=== PATIENT | female | born 1975 | race Caucasian/White ===

== ENCOUNTER 2016-12-02 02:47 | Emergency (ER) | payer OTHER ==
[2016-12-02 02:55] VITALS: BP 107/75; PULSE 60; TEMP 97.9; BMI 22.4
[2016-12-02] MEDS ORDERED: ONDANSETRON 4 MG/2 ML VIAL ONE ×2 (03:03→03:09)
[2016-12-02] MEDS ORDERED: ONDANSETRON 4 MG/2 ML VIAL IVPB ONE (03:04)
[2016-12-02] MEDS ORDERED: SODIUM CHLORIDE 1,000 ML IV ONE (03:04)
--- NOTE | 2016-12-02 03:04 | PDOC ---
History of Present Illness - General Chief Complaint: Migraine Headache Stated Complaint: MIGRAINE Time Seen by Provider: 12/02/16 02:57 History Source: Patient Exam Limitations: No Limitations - History of Present Illness Initial Comments: 12/02/16 03:01 This is a 41-year-old female who comes in complaining of the severe left-sided headache. Patient has history significant for removal of a tumor on that side in the past. Patient said that she does not normally get migraine headaches. Patient said that over the last week she has had several headaches. Patient said that normally except for migraine works for her headaches. Patient saw her neurosurgeon and was given olanzapine which she took prior to coming in but says it is not working. Patient is also complaining of nausea. Patient denies any fevers or chills. Patient denies any neck stiffness. PAST MEDICAL HISTORY: as per HPI PAST SURGICAL HISTORY: no significant history FAMILY HISTORY: no pertinant history SOCIAL HISTORY: Pt lives with family and is employed. MEDICATIONS: reviewed ALLERGIES: As per nursing notes Review of Systems General: No fevers or chills, no weakness, no weight loss HEENT: No change in vision. No sore throat,. No ear pain CardioVascular: No chest pain or shortness of breath Respiratory:No cough, or wheezing. Gastrointestinal: no nausea, vomitting, diarrhea or constipation, No rectal bleeding Genitourinary: No dysuria, hematuria, or frequency Musculoskeletal: No joint or muscle pain or swelling Neurologic: + headache, no vertigo, dizziness or loss of consciousness Psychiatric: nor depression Skin: No rashes or easy bruising Endocrine: no increased thirst or abnormal weight change Allergic: no skin or latex allergy All other systems reviewed and normal Exam: General: Well-nourished well-developed individual, no acute distress HEENT: Throat: Normal, tonsils normal, no erythema or exudate Neck: Supple, no meningeal signs, no lymphadenopathy Eyes::Pupils equal reactive and round, extraocular motion intact Extremities: Warm, dry, no cyanosis, clubbing, or edema Skin: No rashes Neuro: Alert and oriented x3, nonfocal exam, grossly intact, normal gait Psych: Normal mood and affect CT head shows no acute pathology Assessment and plan: This is a 41-year-old female who comes in complaining of a migraine. Patient is has frequent migraines after surgery for a brain lesion. Patient was given Toradol, Zofran and morphine with improvement but not complete resolution of her symptoms. Patient had a head CT done that was negative for any acute pathology Patient discharged home will follow-up with her doctor Past History - Past Medical History Allergies/Adverse Reactions: Allergies Allergy/AdvReac Type Severity Reaction Status Date / Time No Known Allergies Allergy Verified 12/02/16 02:48 Home Medications: Ambulatory Orders Olanzapine 5 mg PO PRN 12/02/16 Other medical history: MIGRAINES - Suicide/Smoking/Psychosocial Hx Smoking History: Never smoked Have you smoked in the past 12 months: No Information on smoking cessation initiated: No Hx Alcohol Use: No Drug/Substance Use Hx: No Substance Use Type: None *Physical Exam - Vital Signs Last Vital Signs Temp Pulse Resp BP Pulse Ox 97.9 F 60 16 107/75 100 12/02/16 02:50 12/02/16 02:50 12/02/16 02:50 12/02/16 02:50 12/02/16 02:50 *DC/Admit/Observation/Transfer Diagnosis at time of Disposition: Migraine Qualifiers: Migraine type: unspecified Status migrainosus presence: without status migrainosus Intractability: not intractable Qualified Code(s): G43.909 - Migraine, unspecified, not intractable, without status migrainosus - Discharge Dispostion Disposition: HOME Condition at time of disposition: Stable Admit: No - Patient Instructions Additional Instructions: Call your doctor in the morning and at him know that you were here in the emergency room and we gave you Toradol and morphine for your headache. When you get home you can take an Excedrin migraine if needed. Return to the emergency department immediately with ANY new, persistent or worsening symptoms. Continue any medications as previously prescribed by your physician. You should follow up with your primary doctor as soon as possible regarding today's emergency department visit. . Please make sure your doctor reviews the results of your emergency evaluation. Thank you for coming to the Emergency Department today for your care. It was a pleasure to see you today. Please note that your evaluation is INCOMPLETE until you follow-up with your doctor.
[2016-12-02] MEDS ORDERED: morphine CARPU-JECT 2 MG/1 ML DISP.SYRIN IVPUSH ONE (03:45)
[2016-12-02] MEDS ORDERED: KETOROLAC TROMETHAMINE 30 MG/1 ML VIAL IVPUSH ONE (03:45)
[2016-12-02] MEDS ORDERED: KETOROLAC TROMETHAMINE 30 MG/1 ML VIAL ONE (03:49)
[2016-12-02] MEDS ORDERED: morphine CARPU-JECT 2 MG/1 ML DISP.SYRIN ONE (03:50)
== END 2016-12-02 04:10 | disposition home or self-care (01) ==
LOC: FER 02:47
PROC: 3E0333Z Introduction of Anti-inflammatory into Peripheral Vein, Percutaneous Approach (ICD-10-PCS; principal; 2016-12-02)
PROC: 3E033NZ Introduction of Analgesics, Hypnotics, Sedatives into Peripheral Vein, Percutaneous Approach (ICD-10-PCS; 2016-12-02)
PROC: 3E033GC Introduction of Other Therapeutic Substance into Peripheral Vein, Percutaneous Approach (ICD-10-PCS; 2016-12-02)
PROC: 3E0337Z Introduction of Electrolytic and Water Balance Substance into Peripheral Vein, Percutaneous Approach (ICD-10-PCS; 2016-12-02)
DX: G43.909 Migraine, unspecified, not intractable, without status migrainosus (principal); Z87.898 Personal history of other specified conditions
CPT/HCPCS: 70450-TC; 99282-25

== ENCOUNTER 2017-02-25 22:03 | Emergency (ER) | payer OTHER ==
[2017-02-25 22:27] VITALS: BP 114/73; PULSE 82; TEMP 97.3; BMI 22.4
[2017-02-25] MEDS ORDERED: SODIUM CHLORIDE 1,000 ML IV STA (22:28)
[2017-02-25] MEDS ORDERED: KETOROLAC TROMETHAMINE 30 MG/1 ML VIAL IVPUSH ONE (22:28)
[2017-02-25] MEDS ORDERED: KETOROLAC TROMETHAMINE 30 MG/1 ML VIAL ONE (22:32)
[2017-02-25] MEDS ORDERED: CYCLOBENZAPRINE HCL 10 MG TABLET (FP) ONE (22:32)
[2017-02-25] MEDS ORDERED: METOCLOPRAMIDE HCL INJECTION 10 MG/2 ML VIAL IVPUSH ONE (22:56)
--- NOTE | 2017-02-25 23:15 | PDOC ---
History of Present Illness - General Chief Complaint: Migraine Headache Stated Complaint: NERVE TIGHTNESS, NECK PAIN History Source: Patient Exam Limitations: No Limitations - History of Present Illness Initial Comments: 02/25/17 23:13 41 year old female with history of meningioma resection, migraines presents with neck spasm. The patient reports that she was sitting at dinner when she felt a sudden onset of bilateral paracervical neck spasm radiating down to her bilateral trapezius muscle. Denies numbness, weakness. States palpation or movement reproduces the pain. Past History - Past Medical History Allergies/Adverse Reactions: Allergies Allergy/AdvReac Type Severity Reaction Status Date / Time No Known Allergies Allergy Verified 12/02/16 02:48 Home Medications: Ambulatory Orders Olanzapine 5 mg PO PRN 12/02/16 Cyclobenzaprine HCl [Flexeril 10 mg] 10 mg PO Q8H PRN #21 tablet 02/25/17 Isomethept/Dichlphn/Acetaminop [Hczrqofoft-Jptjpzyzzt-Gvznrqap] 1 each PO DAILY 02/25/17 Naproxen 500 mg PO BID PRN #20 tablet 02/25/17 COPD: No Other medical history: MENINGIOMA - Suicide/Smoking/Psychosocial Hx Smoking History: Never smoked Have you smoked in the past 12 months: No Hx Alcohol Use: No Drug/Substance Use Hx: No Substance Use Type: None Review of Systems - Review of Systems Able to Perform ROS?: Yes Comments:: 02/25/17 23:15 GENERAL/CONSTITUTIONAL: No fever, weakness. HEAD, EYES, EARS, NOSE AND THROAT: No change in vision. No ear pain or discharge. No sore throat. CARDIOVASCULAR: No chest pain or shortness of breath. RESPIRATORY: No cough, wheezing, or hemoptysis. GASTROINTESTINAL: No abdominal pain, nausea, vomiting, diarrhea, or decreased PO intolerance. GENITOURINARY: No dysuria, frequency, or change in urination. MUSCULOSKELETAL: No joint or muscle swelling or pain. + neck spasm SKIN: No rash NEUROLOGIC: No headache, vertigo, loss of consciousness, or change in strength/ sensation. ENDOCRINE: No increased thirst. No abnormal weight change. HEMATOLOGIC/LYMPHATIC: No anemia, easy bleeding, or history of blood clots. ALLERGIC/IMMUNOLOGIC: No hives or skin allergy. *Physical Exam - Vital Signs Last Vital Signs Temp Pulse Resp BP Pulse Ox 97.3 F L 82 16 114/73 98 02/25/17 22:24 02/25/17 22:24 02/25/17 22:24 02/25/17 22:27 02/25/17 22:24 - Physical Exam Comments: 02/25/17 23:16 GENERAL: Awake, alert, and fully oriented, in no acute distress. HEAD: No signs of trauma EYES: PERRLA, EOMI, sclera anicteric, conjunctiva clear ENT: Auricles normal inspection, hearing grossly normal, nares patent NECK: ROM limited 2/2 pain. No c-spine tenderness. TTP bilateral paracervical muscle tenderness. Muscle spasms appreciated. LUNGS: Breath sounds equal, clear to auscultation bilaterally. No wheezes, and no crackles HEART: Regular rate and rhythm, normal S1 and S2, no murmurs, rubs or gallops EXTREMITIES: Normal range of motion, no edema. No clubbing or cyanosis. No cords, erythema, or tenderness NEUROLOGICAL: Cranial nerves II through XII grossly intact. Normal speech, normal gait SKIN: Warm, Dry, normal turgor, no rashes or lesions noted. ED Treatment Course - Medications Given in the ED: ED Medications Discontinued Medications Generic Name Dose Route Start Last Admin Trade Name Freq PRN Reason Stop Dose Admin Ketorolac Tromethamine 30 mg 02/25/17 22:28 02/25/17 22:45 Toradol Injection - IVPUSH 02/25/17 22:29 30 mg ONCE ONE Administration Metoclopramide HCl 10 mg 02/25/17 22:56 02/25/17 23:01 Reglan Injection - IVPUSH 02/25/17 22:57 10 mg ONCE ONE Administration Medical Decision Making - Medical Decision Making 02/25/17 23:16 Vital Signs Temp Pulse Resp BP Pulse Ox 97.3 F L 82 16 114/73 98 02/25/17 22:24 02/25/17 22:24 02/25/17 22:24 02/25/17 22:27 02/25/17 22:24 The patient presentation is consistent with severe muscle spasm. NSAIDS, muscle relaxants, IVF reassess. 02/25/17 23:47 Pt reports feeling complete relief with tylenol, toradol, flexeril. (reglan was given for her migraines) She will go home with her cousin. I discussed the physical exam findings, ancillary test results and final diagnoses with the patient. I answered all of the patient's questions. The patient was satisfied with the care received and felt comfortable with the discharge plan and treatment plan. The patient will call their primary care physician within 24 hours to arrange follow-up and will return to the Emergency Department with any new, persistant or worsening symptoms. *DC/Admit/Observation/Transfer Diagnosis at time of Disposition: Muscle spasm - Discharge Dispostion Disposition: HOME Condition at time of disposition: Improved Admit: No - Prescriptions Prescriptions: Cyclobenzaprine HCl [Flexeril 10 mg] 10 mg PO Q8H PRN #21 tablet PRN Reason: Muscle Spasm Naproxen 500 mg PO BID PRN #20 tablet PRN Reason: Pain - Referrals Referrals: Stuart Palm MD [Primary Care Provider] - - Patient Instructions Printed Discharge Instructions: DI for Neck Pain, Neck Pain (Alternative Therapy) Additional Instructions: You have muscle spasms. It may take several more days before your pain goes away completely. Take 500 mg naproxen every 12 hours as needed for pain. For additional relief, take a tablet of 10 mg flexeril every 8 hours as needed. This medication may make you drowsy so please do not drink or drive on this medication. Drink plenty of fluids and rest. Follow up with your doctor. - Post Discharge Activity
[2017-02-25] MEDS ORDERED: ACETAMINOPHEN 1000 MG/100 ML VIAL (NON FORMULARY) IVPB ONE (23:21)
[2017-02-25] MEDS ORDERED: ACETAMINOPHEN INJECTION 100 ML IVPB ONE (23:21)
[2017-02-26] MEDS ORDERED: CYCLOBENZAPRINE HCL 5 MG TABLET PO ONE (10:00)
== END 2017-02-25 23:54 | disposition home or self-care (01) ==
LOC: SUPCPDRO 22:03 → FER 22:03
PROC: 3E033NZ Introduction of Analgesics, Hypnotics, Sedatives into Peripheral Vein, Percutaneous Approach (ICD-10-PCS; principal; 2017-02-25)
PROC: 3E0333Z Introduction of Anti-inflammatory into Peripheral Vein, Percutaneous Approach (ICD-10-PCS; 2017-02-25)
PROC: 3E033GC Introduction of Other Therapeutic Substance into Peripheral Vein, Percutaneous Approach (ICD-10-PCS; 2017-02-25)
PROC: 3E0337Z Introduction of Electrolytic and Water Balance Substance into Peripheral Vein, Percutaneous Approach (ICD-10-PCS; 2017-02-25)
DX: M62.838 Other muscle spasm (principal)
CPT/HCPCS: 99282-25